=== PATIENT | male | born 1990 | race African-American/Black ===

== ENCOUNTER 2017-07-30 17:17 | Emergency (ER) | payer OTHER ==
[~2017-07-30] VITALS: Ht 180.3 cm; Wt 84.1 kg
[~2017-07-30 17:17] MED LIST: NOHOMEMEDS; PEPCID40 MG PO; risperDAL PO
[2017-07-30 17:58] LABS: HEMATOCRIT 46.2 % (38.0-50.0); HEMOGLOBIN 16.3 G/DL (12.5-16.6); MCH 31.3 PG (29.0-34.0); MCHC 35.3 G/DL (30.0-36.0); MCV 88.8 FL (86-99); RBC DIS.WIDTH-CV 12.8 % (11.8-14.6); RBC DIS.WIDTH-SD 41.9 % (39-53); WHITE BLOOD COUNT 7.2 K/uL (4.1-10.2)
[2017-07-30 18:08] LABS: CHLORIDE 104 mEq/L (99-109)
[2017-07-30 18:09] LABS: POTASSIUM 4.4 mEq/L (3.7-5.4); SODIUM 141 mEq/L (136-147)
[2017-07-30 18:10] LABS: GLUCOSE 82 mg/dL (70-99)
[2017-07-30 18:13] LABS: SERUM ETHYL ALCOHOL < 10 mg/dL
[2017-07-30 18:14] LABS: CREATININE 1.2 mg/dL (0.6-1.3); GFR ESTIMATE (CALCULATED) > 59 mL/min/ (58.99-99999)
[2017-07-30 18:16] LABS: UREA NITROGEN (BUN) 17 mg/dL (9-23)
[2017-07-30 18:17] LABS: SALICYLATE < 5.0 MG/DL (15-30)
[2017-07-30 18:18] LABS: ACETAMINOPHEN (TYLENOL) < 10 mcg/mL (10-30)
[2017-07-30 19:00] LABS: PLAT.SUFFICIENCY ADEQUATE; PLATELET COUNT UNABLE TO REPORT K/uL (156-360)
[2017-07-30 19:22] VITALS: BP 121/83
== END 2017-07-30 19:25 | disposition home or self-care (01) ==
LOC: EME 17:17
PROVIDERS: Emergency Medicine
DX: F31.9 Bipolar disorder, unspecified (principal); F29 Unspecified psychosis not due to a substance or known physiological condition; Z04.6 Encounter for general psychiatric examination, requested by authority; F17.200 Nicotine dependence, unspecified, uncomplicated
CPT/HCPCS: 80048; 85027; 90837; 99281; 99284; G0480

== ENCOUNTER 2017-08-01 19:21 | Inpatient (IN) | payer OTHER ==
[~2017-08-01] VITALS: Ht 185.4 cm; Wt 73.1 kg
[2017-08-01 23:21] VITALS: BP 112/58
[2017-08-01 23:34] LABS: HEMATOCRIT 43.3 % (38.0-50.0); HEMOGLOBIN 15.2 G/DL (12.5-16.6); MCH 31.3 PG (29.0-34.0); MCHC 35.1 G/DL (30.0-36.0); MCV 89.3 FL (86-99); PLATELET COUNT 297 K/uL (156-360); RBC DIS.WIDTH-CV 12.7 % (11.8-14.6); RBC DIS.WIDTH-SD 41.8 % (39-53); RED BLOOD COUNT 4.85 M/uL (4.00-5.50); WHITE BLOOD COUNT 7.6 K/uL (4.1-10.2)
[2017-08-01 23:49] LABS: CHLORIDE 104 mEq/L (99-109); POTASSIUM 4.3 mEq/L (3.7-5.4); SODIUM 140 mEq/L (136-147)
[2017-08-01 23:50] LABS: GLUCOSE 56 mg/dL (70-99)
[2017-08-01 23:53] LABS: SERUM ETHYL ALCOHOL < 10 mg/dL
[2017-08-01 23:54] LABS: GFR ESTIMATE (CALCULATED) > 59 mL/min/ (58.99-99999)
[2017-08-01 23:55] LABS: UREA NITROGEN (BUN) 14 mg/dL (9-23)
[2017-08-02 07:48] VITALS: BP 96/58
[2017-08-02 14:05] LABS: BENZODIAZEPINES, URINE SCREEN Negative (200 ng/mL)
[2017-08-02 16:24] VITALS: BP 114/77
[2017-08-03 09:21] VITALS: BP 116/68
[2017-08-03 16:51] VITALS: BP 110/65
[2017-08-04 09:16] VITALS: BP 109/69
[2017-08-04 16:36] VITALS: BP 115/75
[2017-08-05 07:57] VITALS: BP 118/66
[2017-08-05 16:16] VITALS: BP 123/76
[2017-08-06 15:26] VITALS: BP 121/83
[2017-08-07 07:49] VITALS: BP 117/73
[2017-08-07] MEDS ORDERED: ABILIFY MAINTE400 MG IM (08:57)
[2017-08-07] MEDS ORDERED: ABILIFY10 MG PO (08:57)
[2017-08-07] MEDS ORDERED: DEPAKOTE ER500 MG PO (08:57)
== END 2017-08-07 09:53 | disposition home or self-care (01) | DRG 885 ==
LOC: EME 19:21 → 1WEST 21:10 → EDOF 21:10 → ENRESERV 22:09 → 1WEST 22:42
PROVIDERS: Emergency Medicine; Psychiatry & Neurology Psychiatry
DX: F25.0 Schizoaffective disorder, bipolar type (principal); Z91.14 Patient's other noncompliance with medication regimen; F17.200 Nicotine dependence, unspecified, uncomplicated; Z81.8 Family history of other mental and behavioral disorders
CPT/HCPCS: 80048; 80164; 80306 90; 85027; 97150 GO; 97166 GO; 99281; 99283; G0480; Q0177